=== PATIENT | male | born 1955 | race Caucasian/White ===

== ENCOUNTER 2017-09-20 11:20 | Emergency (ER) | payer OTHER ==
[~2017-09-20] VITALS: Ht 182.9 cm; Wt 83.9 kg
--- NOTE | ~2017-09-20 | EKG ---
[place] [address] [facility] [employer] [place] [address] ELECTROCARDIOGRAM REPORT Name: URVASHIALEKSANAYA Room #: DEP DANE Adam#: [id number] Admission: 09/20/17 Attend Phys: Discharge: 09/20/17 Date of : 57 Report #: [id number] THIS REPORT FOR: //name// [facility] ED Test Date: 2017-09-20 Test Time: 14:55:21 Pat Name: ANAYA LANDIN Department: Room: Gender: M Circulator: Rachel HINOJOSA : 1955 Requested By: Salomón Holloway Order Number: [id number] MD: Ilir Myrick Measurements Intervals [place] Rate: 49 P: 18 WA: 214 QRS: -39 QRSD: 111 T: 16 QT: 440 QTc: 398 Interpretive Statements Sinus bradycardia Low voltage, precordial leads Consider anterior infarct No previous ECG available for comparison Electronically Signed On 09-20-2017 15:47:53 [employer] by Ilir Myrick [email or web address] <ELECTRONICALLY SIGNED> By: Ilir Myrick MD 09/20/17 1547 1455 1455 MD KAT Schwartz
[~2017-09-20 11:20] MED LIST: AMPICILLIN TRI500 MG PO; ASA81BEC PO; ASPIR 8181 MG PO; ASPIRIN EC81 M1; AUGMENTIN 875875 MG TOP; B12INJ IM; BACLOFEN 10MG T10 MG PO; BETAMETHASONE D15 G1; BETAMETHASONE D15 G1 TOP; BETAMETHASONE D45 G1 TP; CLINDAMYCIN PHO40 GM VG; COLACE100 MG PO; COUMADIN 5 MG TA5 M1 PO; D3 DOTS2000 UNIT PO; DIPROLENE AF 0.15 GM TP; ENOXAPARIN100 MG/11 SUBQ; ENOXAPARIN30 MG/0.3 SUBQ; FLOMAX0.4 MG PO; KEFLEX500 MG PO; LIORESAL 10 MG10 MG PO; LIPITOR 20 MG T20 M1 PO; LIPITOR10 MG PO; LISINOPRIL5 MG PO; LOVENOX INJECTION; MINOCIN100 MG PO; NORCO 10-325 T1 EACH PO; NORCO 5-325 TA1 EACH PO; PERCOCET PO; PRINIVIL5 MG PO; ROBAXIN 750 MG750 M1 PO; ROBAXIN500 MG PO; VITAMIN D-32000 UNIT PO; VITAMIN D2000 UNIT PO
[2017-09-20 12:05] LABS: URINE BILIRUBIN NEGATIVE (Negative); URINE BLOOD 3+ (Negative); URINE CLARITY SL CLOUDY; URINE COLOR YELLOW; URINE GLUCOSE-RANDOM* NEGATIVE (Negative); URINE KETONES NEGATIVE (Negative); URINE LEUKOCYTES NEGATIVE (Negative); URINE NITRITE NEGATIVE (Negative); URINE PROTEIN (DIPSTICK) NEGATIVE (Negative); URINE SPECIFIC GRAVITY 1.015 (1.005-1.035); URINE UROBILINOGEN 0.2 E.U./dl (0.2-1.0)
[2017-09-20 12:16] LABS: BACTERIA None Seen /HPF (None Seen); CASTS None Seen /LPF (None Seen); CRYSTALS None Seen /LPF (None Seen); SQUAMOUS None Seen /LPF (0-3); URINE RBC >20 Many /HPF (0-2); URINE WBC 0-5 Rare /HPF (0-5)
[2017-09-20 14:02] LABS: HEMATOCRIT 43.9 % (42.0-52.0); HEMOGLOBIN 14.8 gm/dL (14.0-18.0); MCH 31.4 pg (26.0-34.0); MCHC 33.7 g/dL (28.0-37.0); MCV 93.1 fL (80.0-100.0); RBC 4.72 mil/uL (4.50-6.00); WBC 6.5 thou/uL (4.0-11.0)
[2017-09-20 14:11] LABS: CALCIUM 9.1 mg/dL (8.5-10.1); CREATININE 0.9 mg/dL (0.7-1.3); POTASSIUM 4.4 mmol/L (3.5-5.1)
[2017-09-20 14:15] LABS: INR 3.6; PROTIME 36.6 Seconds (9.3-11.4)
[2017-09-20 14:16] LABS: ALBUMIN 3.8 g/dL (3.4-5.0); TOTAL BILIRUBIN 0.4 mg/dL (<0.1-1.0); TOTAL PROTEIN 6.8 g/dL (6.4-8.2)
[2017-09-20 14:17] VITALS: BP 102/69
[2017-10-21] MEDS ORDERED: COUMADIN7.5 MG PO (15:19)
[2017-10-21] MEDS ORDERED: HYDROCODONE-AP1 EAC6 PO (18:23)
== END 2017-09-20 15:21 | disposition home or self-care (01) ==
LOC: ER 11:20 → EDSEX 11:20 → ER 15:21
PROVIDERS: Emergency Medicine; Physician Assistant
DX: R31.9 Hematuria, unspecified (principal); R42 Dizziness and giddiness; Z86.73 Personal history of transient ischemic attack (TIA), and cerebral infarction without residual deficits; I10 Essential (primary) hypertension